=== PATIENT | male | born 1970 | race Two or more races ===

== ENCOUNTER 2016-11-28 16:58 | Inpatient (IN) | payer MEDICARE, OTHER ==
[~2016-11-28] VITALS: Ht 165.1 cm; Wt 69.5 kg
[~2016-11-28 16:58] MED LIST: OLAN10TA3 PO; WARF2 PO
[2016-11-28] MEDS ORDERED: 0.9% SODIUM CHLORIDE 10 ML SYRINGE IVP PRN (18:30)
[2016-11-28] MEDS ORDERED: ACETAMINOPHEN 325 MG TABLET PO PRN (18:30)
[2016-11-28] MEDS ORDERED: ONDANSETRON HCL 4 MG/2 ML VIAL IVP PRN (18:30)
[2016-11-28 22:11] VITALS: BP 127/75
[2016-11-29] MEDS ORDERED: INFLUENZA VIRUS VACCINE QVS 2017-18 (3YR+)/PF 60 MCG/0.5 ML SYRINGE IM ONE (03:30)
[2016-11-29 03:41] VITALS: BP 105/81
[2016-11-29 06:07] LABS: BASOPHILS % (AUTO) 0.1 % (0.0-2.0); EOSINOPHILS % (AUTO) 1.4 % (1.0-6.0); HEMATOCRIT 49.3 % (41-53); HEMOGLOBIN 16.6 g/dL (13.5-17.5); LYMPHOCYTES # (AUTO) 1.9 K/uL (1.0-4.8); LYMPHOCYTES % (AUTO) 21.7 % (22.0-44.0); MEAN CORPUSCULAR HEMOGLOBIN 31.3 pg (26.0-34.0); MEAN CORPUSCULAR HGB CONC 33.7 G/dL (31.0-37.0); MEAN CORPUSCULAR VOLUME 93 fL (80-100); MONOCYTES # (AUTO) 0.5 K/uL (0.1-1.0); NEUTROPHILS # (AUTO) 6.3 K/uL (1.8-7.7); NEUTROPHILS % (AUTO) 70.8 % (40.0-70.0); PLATELET COUNT (AUTO) 134 K/uL (150-450); RED BLOOD CELL COUNT(AUTO) 5.31 MIL/uL (4.50-5.90); WHITE BLOOD COUNT (AUTO) 8.8 K/uL (4.5-11.0)
[2016-11-29] MEDS: DEXTROSE 5%-0.45% SODIUM CHL 1,000 ML IV SCH ×2 (06:58→16:02)
[2016-11-29 07:28] VITALS: BP 121/78
[2016-11-29 11:15] VITALS: BP 118/82
[2016-11-29] MEDS: HYDROCODONE/ACETAMINOPHEN 5-325 MG TABLET PO PRN (12:13)
[2016-11-29] MEDS: OLANZapine 10 MG TABLET PO SCH (12:14)
[2016-11-29 15:46] VITALS: BP 112/60
[2016-11-29 19:54] VITALS: BP 112/71
[2016-11-29] MEDS ORDERED: WARFARIN SODIUM 2 MG TABLET PO SCH (21:00)
[2016-11-29 23:53] VITALS: BP 115/80
[2016-11-30] MEDS: DEXTROSE 5%-0.45% SODIUM CHL 1,000 ML IV SCH ×3 (01:30→22:07)
[2016-11-30 05:08] VITALS: BP 113/74
[2016-11-30 06:20] LABS: ALANINE AMINOTRANSFERASE 30 U/L (12-78); ALBUMIN 3.5 g/dL (3.4-5.0); ANION GAP 9 mmol/L (8-16); ASPARTATE AMINOTRANSFERASE 18 U/L (15-37); BILIRUBIN,TOTAL 0.6 mg/dL (0.1-1.0); CALCIUM, TOTAL 8.5 mg/dL (8.8-10.5); CARBON DIOXIDE 27 mmol/L (22-29); CHLORIDE 105 mmol/L (98-107); CREATININE 0.75 mg/dL (0.60-1.30); GLOMERULAR FILTR. RATE CALC > 60 mL/min (>60); POTASSIUM 3.7 mmol/L (3.5-5.1); SODIUM SERUM 141 mmol/L (136-145); TOTAL PROTEIN, SERUM 7.3 g/dL (6.4-8.2); UREA NITROGEN, BLOOD 5 mg/dL (7-18)
[2016-11-30 07:31] VITALS: BP 122/81
[2016-11-30] MEDS: OLANZapine 10 MG TABLET PO SCH (08:29)
[2016-11-30 11:45] VITALS: BP 105/75
[2016-11-30 15:49] VITALS: BP 127/83
[2016-11-30 17:45] LABS: INR 1.1 (0.9-1.1); PROTHROMBIN TIME 11.5 SEC (9.4-11.6)
[2016-11-30 19:38] VITALS: BP 110/73
[2016-11-30] MEDS: HYDROCODONE/ACETAMINOPHEN 5-325 MG TABLET PO PRN (19:56)
[2016-11-30 23:35] VITALS: BP 109/71
[2016-12-01 04:45] VITALS: BP 98/58
[2016-12-01 07:53] VITALS: BP 105/69
[2016-12-01] MEDS ORDERED: SODIUM CHLORIDE 0.9% 1,000 ML IV ONE ×2 (10:43→11:30)
[2016-12-01 11:19] VITALS: BP 118/78
[2016-12-01] MEDS ORDERED: PROPOFOL 1% 20 ML VIAL IVP ONE (12:00)
[2016-12-01] MEDS: OLANZapine 10 MG TABLET PO SCH (13:39)
[2016-12-01] MEDS: HYDROCODONE/ACETAMINOPHEN 5-325 MG TABLET PO PRN (13:40)
[2016-12-01] MEDS: DEXTROSE 5%-0.45% SODIUM CHL 1,000 ML IV SCH (13:47)
[2016-12-01 16:17] VITALS: BP 105/72
[2016-12-01 19:31] VITALS: BP 106/72
[2016-12-01] MEDS ORDERED: WARFARIN SODIUM 2 MG TABLET PEG SCH (21:00)
[2016-12-01] MEDS ORDERED: LATANOPROST 0.005% 2.5 ML OPHTHALMIC SOLUTION OU SCH (21:00)
[2016-12-01 23:22] VITALS: BP 101/57
[2016-12-02] MEDS: DEXTROSE 5%-0.45% SODIUM CHL 1,000 ML IV SCH (00:03)
[2016-12-02 05:11] VITALS: BP 95/54
[2016-12-02 07:27] VITALS: BP 105/62
[2016-12-02] MEDS: OLANZapine 10 MG TABLET PO SCH (08:22)
[2016-12-02] MEDS ORDERED: PRAVASTATIN SODIUM 20 MG TABLET PO SCH (09:00)
[2016-12-02 12:10] VITALS: BP 99/56
== END 2016-12-02 15:20 | disposition home or self-care (01) | DRG 395 ==
LOC: EMS 16:59 → 6N 19:46
PROVIDERS: ADMIT Family Medicine; ATTEND Family Medicine
PROC: 3E0234Z Introduction of Serum, Toxoid and Vaccine into Muscle, Percutaneous Approach (ICD-10-PCS; 2016-11-30)
PROC: 0DH63UZ Insertion of Feeding Device into Stomach, Percutaneous Approach (ICD-10-PCS; principal; 2016-12-01 12:00)
DX: K94.23 Gastrostomy malfunction (principal); R13.10 Dysphagia, unspecified; F20.9 Schizophrenia, unspecified; R62.7 Adult failure to thrive; Z79.01 Long term (current) use of anticoagulants; Z23 Encounter for immunization
CPT/HCPCS: 74022; 87081; 90471; 99285; J2704; J7030